=== PATIENT | male | born 2000 | race Caucasian/White ===

== ENCOUNTER 2018-04-10 13:02 | Emergency (ER) | payer OTHER, MEDICAID ==
[2018-04-10] MEDS ORDERED: PROMETHAZINE HCL 25 MG/ML INJ IVP ONE (13:25)
[2018-04-10] MEDS ORDERED: NS 1,000 ML IV ONE ×2 (13:25)
[2018-04-10 13:31] LABS: PLATELET COUNT 302 10^3/uL (150-400)
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
[2018-04-10] MEDS ORDERED: IOHEXOL 300 mgI/ML (OMNIPAQUE) 150 ML BTL IV ONE (14:16)
[2018-04-10 16:00] VITALS: BP 118/65
== END 2018-04-10 16:00 | disposition home or self-care (01) ==
DX: R11.2 Nausea with vomiting, unspecified (principal); R10.33 Periumbilical pain; E86.9 Volume depletion, unspecified; F90.9 Attention-deficit hyperactivity disorder, unspecified type; F41.9 Anxiety disorder, unspecified
CPT/HCPCS: 96374; J2550; Q9967

== ENCOUNTER 2018-07-07 12:52 | Inpatient (IN) | payer OTHER, MEDICAID ==
--- NOTE | 2018-07-07 13:07 | EDPHY ---
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 He describes recent URI symptoms and this morning he woke with bilateral upper and lower extremity paresthesias. He woke approximately 6:00 a.m., back to sleep and Luda woke approximately 8:00 a.m. and symptoms for remained. 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 He denies acute alcohol or drug use. Does note daily marijuana use, last smoked marijuana last evening. 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 SOCIAL HISTORY:Positive for daily marijuana use. Works at [employer] PHYSICAL EXAM (Prior to examination, patient consented to physical exam, hands were washed and my usual and customary physical exam procedures followed) 1) GENERAL: Well-developed, well-nourished, alert and oriented. Appears to be in no acute distress. 2) HEAD: Normocephalic, atraumatic 3) HEENT: Pupils equal, round, reactive to light bilaterally. Sclera anicteric. Symmetrical facies. Negative Jordan's. Nasopharynx, oropharynx, clear, no lesions. Moist Mucous membranes. Ears bilaterally with normal tympanic membranes. 4) NECK: Full range of motion, no meningeal signs. 5) LUNGS: Clear auscultation bilaterally, no wheezes, no rhonchi, no retractions. 6) HEART: Regular rate and rhythm, no murmur, no heave, no gallop. 7) ABDOMEN: No guarding, no rebound, no focal tenderness, negative McBurney's, negative Prasad's, negative Rovsing's, negative peritoneal sign, 8) MUSCULOSKELETAL: Moving all extremities, no focal areas of tenderness, no obvious trauma. No peripheral edema or discoloration. 9) BACK: No CVA tenderness, no midline vertebral tenderness, no fluctuance, no step-off, no obvious trauma, no visual or palpable abnormality. 10) SKIN: No rash, no petechiae. 11) Psychiatric: Patient is oriented X 3, there is no agitation. 12) NEURO: Awake, alert, and oriented to person, place and time. Answers questions appropriately. There were no obvious focal neurologic abnormalities. No cerebellar dysfunction. Cranial nerves 2 through to 12 intact. Normal steady gait. Upper and lower extremities bilaterally with strength 5 / 5, reflexes 2+. Patient notes decreased sensation to sharp on the right lower extremity following the L5 dermatome bilaterally. DIFFERENTIAL DIAGNOSIS: In no particular order including but not limited to Guillain-[place], transverse myelitis, malignancy, (Mercy Brito) Constitutional: Initial Vital Signs Temperature (C) 36.3 C 07/07/18 12:58 Heart Rate 47 L 07/07/18 12:58 Respiratory Rate 16 07/07/18 12:58 Blood Pressure 119/70 07/07/18 12:58 O2 Sat (%) 97 07/07/18 12:58 O2 Delivery Mode Room Air Allergies/Adverse Reactions: No Known Allergies Allergy (Unverified 04/10/18 13:04) Home Medications: Medication Instructions Recorded Aspirin [Aspirin 325 mg (*)] 325 mg PO DAILY PRN 07/07/18 Escitalopram Oxalate [Lexapro] 20 mg PO DAILY 07/07/18 diphenhydrAMINE [Benadryl 25 MG 50 mg PO HS PRN 07/07/18 (*)] Medical Decision Making - Diagnostics Imaging Results: Imaging Impressions Cervical Spine MRI 07/07/18 13:45 Impression: 1. Normal cervical spinal cord without evidence of cord edema, myelomalacia, enhancing lesions, or definite demyelinating plaques. 2. No cervical disk herniations, central canal stenosis or neural foraminal stenosis. 3. No cord compression Findings and recommendations discussed with Emergency Department physicianMercy at 15:06 hour, 07/07/2018. Final report concurs with initial preliminary interpretation. Images reviewed myself (Mercy Brito) ED Course/Re-evaluation: 1:42 p.m.: Phone consultation with on-call neurologist Dr. Lan Pope who recommends MRI of the cervical spine with and without contrast. If this is negative and the patient feels comfortable being discharged he thinks the patient can be discharged with follow up in the office this week (today is Sunday) 3:18 p.m.: Re-evaluation. The patient's mother is at bedside, father on telephone from [place] where he is at the airport [place] route to [place]. Although the MRI C-spine is normal, patient and they are understandably concerned given the patient's history at age 3 when he developed Guillain-[place] , they report a similar presentation, was initially seen and then decompensated over the next 24-48 hours. Given patient's history of gown bar a I think admission to the hospital is appropriate. The patient and family are agreeable with this. 3:21 p.m.: Consultation Dr. Maximo Collins who will admit patient to hospitalist service 3:23 p.m.: Consultation with Dr. Lan Pope who will consult inpatient ( Mercy Brito) Other Provider: PHYSICIAN DOCUMENTATION: The patient was evaluated and managed by the Physician Case Planner and myself. I have reviewed the chart and in addition, I examined the patient myself. History confirmed as pins and needles on the bottom of his feet, he says it feels like when he had Guillain-[place] before. Physical findings as follows: Patellar reflexes 2+, toes downgoing, says his sensation is decreased but no motor deficit noted. Normally conversant without apparent respiratory distress. Father and mother are concerned, discussed with Neurology prior to MRI, admission for neurology consultation and further evaluation. I am the secondary supervising physician. (Ted Aranda) - Data Points Laboratory Results: Laboratory Results 07/07/18 13:15 07/07/18 13:15 07/07/18 07/07/18 07/07/18 13:15 13:15 13:15 WBC 8.96 10^3/uL 10^3/uL (3.80-9.50) RBC 5.72 10^6/uL 10^6/uL (4.40-6.38) Hgb 16.6 g/dL g/dL (13.7-17.5) Hct 48.4 % % (40.0-51.0) MCV 84.6 fL fL (81.5-99.8) MCH 29.0 pg pg (27.9-34.1) MCHC 34.3 g/dL g/dL (32.4-36.7) RDW 12.7 % % (11.5-15.2) Plt Count 313 10^3/uL 10^3/uL (150-400) MPV 9.9 fL fL (8.7-11.7) Neut % (Auto) 54.9 % % (39.3-74.2) Lymph % (Auto) 28.6 % % (15.0-45.0) [place] % (Auto) 10.2 % % (4.5-13.0) Eos % (Auto) 4.6 % % (0.6-7.6) Baso % (Auto) 1.3 % % (0.3-1.7) Nucleat RBC Rel Count 0.0 % % (0.0-0.2) Absolute Neuts (auto) 4.92 10^3/uL 10^3/uL (1.70-6.50) Absolute Lymphs (auto) 2.56 10^3/uL 10^3/uL (1.00-3.00) Absolute Monos (auto) 0.91 10^3/uL H 10^3/uL (0.30-0.80) Absolute Eos (auto) 0.41 10^3/uL H 10^3/uL (0.03-0.40) Absolute Basos (auto) 0.12 10^3/uL H 10^3/uL (0.02-0.10) Absolute Nucleated RBC 0.00 10^3/uL 10^3/uL (0-0.01) Immature Gran % 0.4 % % (0.0-1.1) Immature Gran # 0.04 10^3/uL 10^3/uL (0.00-0.10) Sodium 140 mEq/L mEq/L (135-145) Potassium 4.1 mEq/L mEq/L (3.5-5.2) Chloride 103 mEq/L mEq/L (97-110) Carbon Dioxide 28 mEq/l mEq/l (22-31) Anion Gap 9 mEq/L mEq/L (6-14) BUN 15 mg/dL mg/dL (7-23) Creatinine 0.8 mg/dL mg/dL (0.7-1.3) Estimated GFR > 60 Glucose 67 mg/dL L mg/dL (70-100) Calcium 9.8 mg/dL mg/dL (8.5-10.4) Ethyl Alcohol < 10 mg/dL mg/dL (0-10) Monoscreen NEGATIVE (NEGATIVE) Medications Given: Immune Globulin (Privigen 20 Gm) 20 gm IV DAILY@1500 SENAIT Stop: 07/11/18 15:01 Last Admin: 07/07/18 18:21 Dose: 20 gm Lorazepam (Ativan Injection) 1 mg IVP ONCE PRN PRN Reason: ANXIETY Stop: 01/03/19 16:44 Last Admin: 07/07/18 17:09 Dose: 1 mg Departure - Departure Disposition: [facility] Inpatient Acute Clinical Impression: Paresthesia, History of Guillain-[place] syndrome Condition: Good
[2018-07-07 13:44] LABS: PLATELET COUNT 313 10^3/uL (150-400)
[2018-07-07] MEDS ORDERED: GADOBUTROL 10 ML VIAL IVP ONE (14:28)
[2018-07-07] MEDS ORDERED: IMMUNE GLOBULIN 10 GM/100 ML VIAL IV SCH (15:00)
[2018-07-07] MEDS ORDERED: LORazepam 2 MG/ML INJ IVP PRN (16:45)
[2018-07-07] MEDS ORDERED: LIDOCAINE 1% 300 MG/30 ML SDV ONE (16:55)
--- NOTE | 2018-07-07 16:55 | GCON ---
[f rep st] CONSULTATION Patient is a 18-year-old I am asked to see in neurologic consultation from the emergency room and hos Dr. Mega olea. 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 He had a full recovery. About a week ago, he started having an upper respiratory infection an d never sought out specific medical care and felt somewhat febrile. He started to feel better in the last 48 hours but then early this morning awoke and felt paresthesias in his hands of uncertain caus e. He thought he might have just slept on his hands but they did not improve over the next several h ours. In fact, it started to spread a little bit. He started to feel paresthesias in his face and l ips. He also has similar feelings in his feet. He says when he is walking, his legs just do not fee l right. He is having trouble feeling the floor very well. He feels the right hand is a little weak er than the left. He does not have chest pain, palpitations, or shortness of breath. No change in h is vision, speech, chewing or swallowing. The patient came to the emergency department where we had a cervical spine MRI obtained that was norm al. There is a history of some marijuana use and he works in a restaurant, but otherwise no chronic medical problems or substance abuse. Earlier today when he tried to go to work symptoms were getting worse and that led to him being advis ed to come to the hospital for evaluation. His mother is with him as well. At home he is on some Benadryl as needed, Lexapro 20 mg daily and an aspirin per day or as needed jus t for this recent flu-like symptom. ALLERGIES: No known drug allergies. PHYSICAL EXAM: VITAL SIGNS: Blood pressure 123/59, pulse of 49, respirations 16, temperature 36.7. GENERAL: He is a healthy-appearing young man with a somewhat flushed face. No other evidence of ra sh. NECK: Supple with no bruits or masses. CARDIAC: Regular rate and rhythm with no murmur. Both anterior and posterior lung little are clear. EXTREMITIES: No cyanosis or edema. NEUROLOGIC: He is awake, alert, attentive. Speech is clear and fluent. Pupils are 4 mm and reactive. Extraocular movements intact. Normal facial strength, but there are paresthesias in the face that alter some sen jorge perception. Palate elevates symmetrically. Tongue protrudes midline. Motor exam, normal muscl e bulk and tone, but he has some mild weakness of intrinsic muscles of the right hand more than the l eft, and just a slight degree of distal weakness in the lower extremities. Proximally, the legs are minimally reduced in power. He can ambulate independently and maintain balance. He can walk heel-to -toe, but he says he does not feel right as he walks. Reflexes are about 1+ in the upper extremities , 2+ at the knees, 1+ at the ankles. No pathologic reflexes. LABORATORY: Normal cell count and chemistry. No alcohol in his testing. Millard screen negative. TIME SPENT: Total unit time 70 minutes. IMPRESSION: This young man has a history of Guillain-[place] syndrome and now is presenting after 1 we ek upper respiratory viral type syndrome with symptoms of distal paresthesias also affecting his face , concerning for early Guillain-[place] syndrome with some mild weakness in the right hand and legs. T he cervical spine MRI was negative, excluding any probable spinal cord pathology. The plan is to obt ain lumbar puncture this evening. He will be started on IVIG 400 mg/kg daily for 5 consecutive days. If he were to make a rapid recovery, it is possible that he could be able to leave the hospital to complete outpatient treatment, but more than likely he will stay in this hospital setting to complete the treatment and monitor him closely. If he were to have any deterioration in strength, respiratio ns or other general function, then we will continue to increase the monitoring but will anticipate ch ecking his neurologic exam about every 2 hours and I will get a baseline respiratory therapy evaluati on so that can be tracked as well. All this was discussed with the patient and his mother, as well a s the risks and potential benefits of a lumbar puncture and Interventional Radiology should be able t o do that this evening. /[id number]/MODL
[2018-07-07] MEDS: IMMUNE GLOBULIN 20 GM/200 ML VIAL IV SCH (18:21)
--- NOTE | 2018-07-07 18:45 | GHP ---
[f rep st] HISTORY AND PHYSICAL DATE OF ADMISSION: 07/07/2018 CHIEF COMPLAINT: Numbness of extremities. HISTORY OF PRESENT ILLNESS: Mr. Franz is a pleasant 18-year-old gentleman with a past medical histor y of Guillain-[place] syndrome at the age of 3, who had a recent upper respiratory illness, who present ed to the [facility] Emergency Room after noting numbness and tingling in his feet an d hands. He noted that it felt different as well in his feet when walking. No complaints of low martha k pain. He states he had a recent upper respiratory illness and felt like he did have a fever on Sun day. He did state 1 day of nonbloody diarrhea, but this resolved on its own. These symptoms have la rgely abated. He states the sensation that he has in his feet feels similar to the way he felt when he had Guillain-[place] as a child. In the emergency room he had an MRI of his cervical spine which wa s normal. Neurology was consulted and I reviewed the case with Dr. Lan Pope and the patient is being prepared for a lumbar puncture for further evaluation and is being started on IVIG for treatme nt of Guillain-[place] syndrome. PAST MEDICAL HISTORY: 1. Anxiety/depression. 2. Attention deficit disorder. 3. 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 PAST SURGICAL HISTORY: [place] teeth removal. MEDICATIONS: 1. Lexapro 20 mg daily. 2. The patient states he has also recently been on gabapentin for anxiety as well as Vyvanse for att ention deficit disorder, but has not taken these for at least the past week as he has had difficulty getting followup to obtain refills. ALLERGIES: No known drug allergies. FAMILY HISTORY: Mother and father both living. Father is adopted, so health history is limited. Hi s mother has a history of cervical cancer. SOCIAL HISTORY: The patient is currently single. He grew up in [place], but lives here in [place] w here his mother resides. His parents are /. He currently works at [employer]. He ramachandran s been in school but currently is taking a break and is planning on transferring into the [employer]. REVIEW OF SYSTEMS: CONSTITUTIONAL: Positive for recent fever. ENT: Recent upper respiratory illnes s symptoms which have resolved. CARDIOVASCULAR: No complaints of chest pains, palpitations, or sync opal episodes. RESPIRATORY: No complaints of shortness of breath or productive cough. GI: No foca l abdominal pains, nausea, or vomiting. Positive for 1 episode of diarrhea on Sunday. : No diffi culty with urination or incontinence. NEUROLOGIC: Positive for numbness of the extremities as descr ibed above, possibly also with weakness of his upper extremity. HEMATOLOGIC: No history of any deep vein thrombosis or pulmonary embolism. PSYCHIATRIC: Positive for anxiety and depression history. ENDOCRINE: No history of heat intolerance or polyuria. SKIN: No new skin rashes. MUSCULOSKELETAL: No low back pain. PHYSICAL EXAMINATION: VITAL SIGNS: Temperature 36.7, blood pressure 118/64, heart rate 63, respirat ions 16, satting 97% on room air. GENERAL: The patient appears comfortable. He is awake, alert, con versant, in no acute distress. HEENT: Extraocular movements intact. No scleral icterus. NECK: Niño pple. No adenopathy. No thyroid enlargement. CHEST: Clear to auscultation. Normal respiratory ef fort. HEART: Regular rate and rhythm. No murmurs. ABDOMEN: Soft, nontender, nondistended. Geri l bowel sounds. : No Vasquez catheter in place. EXTREMITIES: No significant edema. NEUROLOGIC: 1 + patellar reflexes bilaterally. I suspect his hand grasp is slightly diminished, possibly more so o n the right as compared to the left. Subjective numbness noted, particularly in the feet bilaterally . LABORATORIES: White blood cell count , hemoglobin 16, platelets 313. Sodium 140, potassiu m 4.1, chloride 103, bicarb 28, BUN 15, creatinine 0.8, glucose of 67, calcium 9.8. Serum alcohol ne gative. Monocyte antibody negative. IMAGING: Cervical spine MRI normal. ASSESSMENT AND PLAN: 1. Guillain [place] syndrome--lumbar puncture has been ordered for further evaluation and patient has been started on IVIG. I have talked with Respiratory Therapy about measuring negative respiratory fo rce every 6 hours, neuro checks every 2 hours. If any significant decline, patient will need to be t ransferred to the intensive care unit but currently appears stable. 2. Anxiety/depression--continue with current Lexapro 20 mg daily. 3. Deep venous thrombosis prophylaxis. Lower risk currently as ambulatory, but monitor closely. 4. Disposition. Patient was living at home independently prior to coming into the hospital. I init kayleny admitted him under observation, but with initiation of IVIG have changed him to inpatient statu s. /[id number]/MODL
[2018-07-07] MEDS: LORazepam 0.5 MG TAB PO PRN (21:26)
[2018-07-07] MEDS: HYDROCODONE/APAP 5/325 TAB PO PRN (21:26)
[2018-07-08] MEDS: ONDANSETRON 4 MG/2 ML VIAL IVP PRN (07:45)
[2018-07-08] MEDS ORDERED: ESCITALOPRAM OXALATE 10 MG TAB PO SCH (09:00)
--- NOTE | 2018-07-08 09:33 | PDMN ---
Medical Necessity Medical necessity: [facility] Neurology: New-onset severe neurologic finding requiring inpatient care. 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
--- NOTE | 2018-07-08 09:39 | ASMTCASEMG ---
Living Arrangements What is your living Answers: With One Parent arrangement? Who do you live with? Type Of Residence What kind of residence do Answers: House you live in? Discharge Plan Comments Coordination Status Comments Notes: Patient is a 18yo single male with a past medical hx of Guillain-[place] syndrome at the age of 3 who had a recent upper respiratory illness and now has symptoms of numbness and tingling in his hands and feet. Patient is being admitted for Guillain-[place] syndrome and is being started on IVIG. PT has been ordered. D/C plan TBD. CM will follow. Date Signed: 07/08/2018 09:37 AM Electronically Signed By:Christa Salinas LCSW
--- NOTE | 2018-07-08 09:59 | NEUROPROG ---
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 Lan Pope. Please see his note on 07/07/18 for full details. Pt had previous Guillian [place] Syndrome at 3 years of age with full recovery 5 months afterwards. 1 week prior to [facility] admission on 07/07/18 pt got a URI. On 07/05/18 he began to feel better but on 07/07/18 he awoke with paresthesias in both hands, his legs, and his face. He also feels slight discoordination of his legs with walking and has problems feeling the floor very well. He also felt his right hand was slightly weak. He had a cervical spine MRI which was unremarkable for acute changes. Dr. 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 Spinal tap was unconcerning. Pt received first dose of IVIG on and will get it until 07/11/17. On 07/08/18 he reported he continues to have paresthesias in his arms, legs and face. His legs also still feel weak. I will get speech eval to ensure safe swallowing and have PT work with pt. He reported having been on gabapentin 600 mg TID in the past and he is currently complaining of neuropathic pain in his back so I will restart this medication ( oral med so will only be given after speech eval, plan discussed with nurse). - PMHx: anxiety/depression, ADD, prior Guillian [place] Syndrome at age 3 yo - SHx: grew up in [place] FHx: cervical cancer - ROS: Pt denied acute fever, total vision loss, active severe chest pain, respiratory failure, total body severe rash, total bowel/bladder incontinence, psychosis, active seizures, or active bleeding - Labs: 07/07/18- CSF clear/colorless, RBC 5, WBC 0, Prot 47, Gluc 57 - Rads: 07/07/18- Cervical MRI wwo: Normal cervical spinal cord without evidence of cord edema, myelomalacia, enhancing lesions, or definite demyelinating plaques. No cervical disk herniations, central canal stenosis or neural foraminal stenosis. 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 Depression/anxiety - Plan: - IVIG day (last dose on 07/11/18) - PT/Speech for any rehab needs - Gabapentin 600 mg TID for neuropathic pain (Pt reported being on this dose in the past without problems) - F/U with Dr. Pope, neuromuscular expert, 1-6 weeks after hospital discharge - 35 min spent with patient, majority of time spent counseling on condition and treatment plan. Objective: Vital Signs Temp Pulse Resp BP Pulse Ox 36.5 C 48 L 16 116/62 95 07/08/18 08:00 07/08/18 08:00 07/08/18 08:00 07/08/18 08:00 07/08/18 08:00 Microbiology 07/07/18 17:34 Gram Stain - Final Cerebral Spinal Fluid 07/07/18 07/08/18 07/09/18 05:59 05:59 05:59 Intake Total 450 Balance 450 Allergies/Adverse Reactions: No Known Allergies Allergy (Unverified 04/10/18 13:04)
[2018-07-08] MEDS ORDERED: LORazepam 2 MG/ML INJ IVP PRN (10:30)
--- NOTE | 2018-07-08 10:34 | HOSPPROG ---
Hospitalist Progress Note Assessment/Plan: 18-year-old with a history of anxiety disorder and ADD is admitted with numbness and possible Guillain-[place] syndrome. Of note he had a previous episode when he was 3 years old and did have a complete recovery from Guillain- [place]. # Guillain-[place] syndrome currently on IVIG. Continues to have numbness that he feels is escalating and pain in his lower extremities that is making him weak. It is a very difficult exam due to his severe anxiety at this time. Some of his symptoms do not seem completely consistent and may be related to his anxiety * Care per Neurology * On IVIG # generalized anxiety disorder with escalation due to his acute medical illness * Resume Lexapro after speech evaluation has been done * Continue Ativan * Consider psychiatric evaluation if his anxiety becomes any worse. # post lumbar puncture headache. Patient is quite uncomfortable at this time. Will monitor and treat symptomatically if persists could consider IR evaluation for blood patch. Subjective: Patient new to me and chart reviewed has multiple complaints including headache, numbness and weakness and pain in his legs. Objective: Vital Signs Temp Pulse Resp BP Pulse Ox 36.5 C 48 L 16 116/62 95 07/08/18 08:00 07/08/18 08:00 07/08/18 08:00 07/08/18 08:00 07/08/18 08:00 Microbiology 07/07/18 17:34 Gram Stain - Final Cerebral Spinal Fluid 07/07/18 07/08/18 07/09/18 05:59 05:59 05:59 Intake Total 450 Balance 450 - Physical Exam Constitutional: appears nourished, not in pain Eyes: PERRL, EOMI Ears, Nose, Mouth, Throat: moist mucous membranes Cardiovascular: regular rate and rhythym Respiratory: no respiratory distress, clear to auscultation Gastrointestinal: soft, non-tender abdomen Genitourinary: no bladder fullness Skin: warm, normal color Musculoskeletal: generalized weakness (Related to effort?) Neurologic: AAOx3 Psychiatric: anxious ICD10 Worksheet Patient Problems: Problems Problem Status Onset Paresthesia Acute History of Guillain-[place] syndrome Acute
[2018-07-08] MEDS: KETOROLAC 15 MG/1 ML SDV IVP PRN (13:31)
[2018-07-08] MEDS: IMMUNE GLOBULIN 20 GM/200 ML VIAL IV SCH (15:14)
[2018-07-08] MEDS: ESCITALOPRAM OXALATE 10 MG TAB PO SCH (15:32)
[2018-07-08] MEDS: GABAPENTIN 300 MG CAP PO SCH ×2 (15:33→22:10)
[2018-07-08] MEDS: TEARS/DEXTRAN 70/HYPROMELLOSE 15 ML OPHT.BTL EACHEYE PRN (16:44)
[2018-07-08] MEDS: IBUPROFEN 200 MG TAB PO PRN (17:13)
[2018-07-08] MEDS: LORazepam 0.5 MG TAB PO PRN ×2 (17:13→23:34)
[2018-07-08] MEDS: IMMUNE GLOBULIN 5 GM/50 ML VIAL IV SCH (18:54)
[2018-07-08] MEDS: HYDROCODONE/APAP 5/325 TAB PO PRN ×2 (19:44→23:34)
--- NOTE | 2018-07-08 20:28 | ECHO ---
[email or web address] [address] [address] Main: [phone] Echocardiography Examination Transthoracic Name: DM PACE MR#: [id number] Study Date: 07/08/2018 Study Time: 03:18 PM Date of : 2000 Age: 18 year(s) Height: 170.2 cm (67 in.) Weight: 61.24 kg (135 lb.) BSA: 1.71 m2 Gender: Male Examination: Echo Contrast: Image Quality: Rhythm: Sinus bradycardia Heart Rate: 50 bpm BP: 118 mmHg/59 mmHg Indication: Abnormal EKG, Cindy Nick Procedure Staff Referring Physician: Line Installer: Ghanshyam Salomon RDCS Reading Physician: Walker Adkins MD Requesting Provider: Ordering Physician: Cristal Candelaria Indication: Abnormal EKG, Cindy Nick Measurements Chambers AV/MV Label Value Normal Value Label Value Normal Value LVOT Vmax 0.89 m/s (0.7m/s - 1.1m/s) AV PGmax 7 mmHg LVDd, 2D 4.4 cm (4.2cm - 5.9cm) AV Vmax 1.34 m/s LVDs, 2D 2.8 cm (2.1cm - 4cm) MV E Vmax 0.58 m/s IVSd, 2D 0.8 cm (0.6cm - 1.1cm) MV A Vmax 0.4 m/s LVPWd, 2D 0.9 cm (0.6cm - 1cm) MV E/A 1.45 LVEF, 2D 66 % (54% - 74%) MV E/E' lateral 3.4 RVDd, 2D 2.7 cm (1.9cm - 3.8cm) MV E/E' septal 5.3 (2.4 - 2.4) Additional Vessels MV E' septal 0.11 m/s Label Value Normal Value MV E' lateral 0.17 m/s AoRoot, MM 3 cm (2.2cm - 3.7cm) MV E/E' mean 4.14 MV E' mean 0.14 m/s TV/PV Label Value Normal Value PV PGmax 3 mmHg PV Vmax, Caliper 0.92 m/s (0.6m/s - 0.9m/s) Conclusions (1) Left ventricular systolic ejection fraction was normal Patient: DM PACE Study Date: 07/08/2018 Page 1 of 2 03:18 PM (2) Normal RV size and function (3) Normal atrial dimensions (4) Grossly normal mitral valve (5) Trileaflet aortic valve without sclerosis or insufficiency (6) Grossly normal tricuspid valve - RVSP was within normal limits (7) Normal ascending aortic dimensions (8) No pericardial effusion Findings Left Ventricle: Left ventricle is normal in size. Normal global systolic left ventricular function. Left ventricle wall thickness is normal. There are no regional wall motion abnormalities. Left ventricular diastolic function parameters are normal. IVS: The septum is intact. Right Ventricle: Normal size right ventricle. Right ventricular systolic function is normal. Left Atrium: The left atrium is normal in size. IAS: Normal appearing atrial septum. Right Atrium: The right atrium is normal in size. Mitral Valve: Mitral valve is normal in appearance. No mitral regurgitation. No mitral valve stenosis. Aortic Valve: Aortic leaflets exhibit normal cuspal separation. No aortic valve regurgitation. There is no aortic stenosis. Tricuspid Valve: Tricuspid valve leaflets are normal in appearance and function. Trivial tricuspid regurgitation. No tricuspid valve stenosis. Pulmonary artery pressure normal. Pulmonic Valve: Pulmonic leaflets exhibit normal cuspal separation. No pulmonic valve regurgitation is evident. There is no pulmonic valve stenosis. Aorta: The aorta is normal. The aortic root size in M-mode measures 3.0 cm. Aorta Measurements AoRoot, MM is 3.0 cm. Pulmonary Artery: The pulmonary artery morphology appears normal. IVC: The inferior vena cava is normal in size and course. Pericardium: No pericardial effusion. No pleural effusion present. Exam Details Procedure Ordered: Echo (No Signature Object) Patient: DM PACE Study Date: 07/08/2018 Page 2 of 2 03:18 PM [id number]
--- NOTE | 2018-07-09 07:13 | CPEKG ---
Test Reason : OPEN Blood Pressure : / mmHG Vent. Rate : 059 BPM Atrial Rate : 063 BPM P-R Int : 130 ms QRS Dur : 086 ms QT Int : 404 ms P-R-T Axes : 055 036 056 degrees QTc Int : 401 ms Sinus rhythm Probable left ventricular hypertrophy ST elev, probable normal early repol pattern Confirmed by Deny Razo ([id number]) on 07/09/2018 7:13:08 AM Referred By: Yomi Collins Confirmed By:Deny Razo
[2018-07-09] MEDS: GABAPENTIN 300 MG CAP PO SCH ×3 (08:02→22:10)
[2018-07-09] MEDS: IBUPROFEN 200 MG TAB PO PRN (08:02)
[2018-07-09] MEDS: ESCITALOPRAM OXALATE 10 MG TAB PO SCH (08:03)
[2018-07-09] MEDS: ONDANSETRON 4 MG/2 ML VIAL IVP PRN (08:56)
[2018-07-09] MEDS: TEARS/DEXTRAN 70/HYPROMELLOSE 15 ML OPHT.BTL EACHEYE PRN (08:57)
[2018-07-09] MEDS: LORazepam 0.5 MG TAB PO PRN ×3 (10:10→22:14)
[2018-07-09] MEDS: HYDROCODONE/APAP 5/325 TAB PO PRN ×3 (10:11→23:14)
--- NOTE | 2018-07-09 10:17 | NEUROPROG ---
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 Lan Pope. Please see his note on 07/07/18 for full details. Pt had previous Guillian [place] Syndrome at 3 years of age with full recovery 5 months afterwards. 1 week prior to [facility] admission on 07/07/18 pt got a URI. On 07/05/18 he began to feel better but on 07/07/18 he awoke with paresthesias in both hands, his legs, and his face. He also feels slight discoordination of his legs with walking and has problems feeling the floor very well. He also felt his right hand was slightly weak. He had a cervical spine MRI which was unremarkable for acute changes. Dr. 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 Spinal tap was unconcerning. Pt received first dose of IVIG on and will get it until 07/11/17. On 07/08/18 he reported he continues to have paresthesias in his arms, legs and face. His legs also still feel weak. I will get speech eval to ensure safe swallowing and have PT work with pt. He reported having been on gabapentin 600 mg TID in the past and he is currently complaining of neuropathic pain in his back so I will restart this medication ( oral med so will only be given after speech eval, plan discussed with nurse). - HPI: F/U 07/09/18. Pt has much less pain and anxiety on gabapentin 600 mg TID. Speech saw pt and cleared for PO intake. Pt on telemetry and had TTE and no concerning findings. He has not yet felt his strength is improved. Reflexes absent in legs. At this time differential is recurrent Guilian [place] Syndrome ( GBS) versus neurologic recrudescence of old GBS from recent GI illness. I will continue with IVIG day 3. - PMHx: anxiety/depression, ADD, prior Guillian [place] Syndrome at age 3 yo - SHx: grew up in [place] FHx: cervical cancer - ROS: Pt denied acute fever, total vision loss, active severe chest pain, respiratory failure, total body severe rash, total bowel/bladder incontinence, psychosis, active seizures, or active bleeding - Labs: 07/07/18- CSF clear/colorless, RBC 5, WBC 0, Prot 47, Gluc 57 - Rads: 07/07/18- Cervical MRI wwo: Normal cervical spinal cord without evidence of cord edema, myelomalacia, enhancing lesions, or definite demyelinating plaques. No cervical disk herniations, central canal stenosis or neural foraminal stenosis. 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 Depression/anxiety - Plan: - IVIG day (last dose on 07/11/18) - PT/Speech for any rehab needs - Continue Gabapentin 600 mg TID for neuropathic pain - F/U with Dr. Pope, neuromuscular expert, 1-6 weeks after hospital discharge - 35 min spent with patient and father, majority of time spent counseling on condition and treatment plan to include prognosis and DDx. Objective: Vital Signs Temp Pulse Resp BP Pulse Ox 36.4 C 62 16 122/73 H 96 07/09/18 07:49 07/09/18 07:49 07/09/18 07:49 07/09/18 07:49 07/09/18 07:49 Microbiology 07/07/18 17:34 Gram Stain - Final Cerebral Spinal Fluid 07/08/18 07/09/18 07/10/18 05:59 05:59 05:59 Intake Total 450 1200 Balance 450 1200 Allergies/Adverse Reactions: No Known Allergies Allergy (Unverified 04/10/18 13:04)
--- NOTE | 2018-07-09 12:38 | HOSPPROG ---
Hospitalist Progress Note Assessment/Plan: 18-year-old with a history of anxiety disorder and ADD is admitted with numbness and possible Guillain-[place] syndrome. Of note he had a previous episode when he was 3 years old and did have a complete recovery from Guillain- [place]. # Guillain-[place] syndrome currently on day 3/5 IVIG. Continues to have numbness and some weakness in his lower extremities. much calmer today. * Care per Neurology * On IVIG # generalized anxiety disorder with escalation due to his acute medical illness * Better back on Lexapro and gabapentin * Continue Ativan as needed only. # post lumbar puncture headache. Improved today and in a much better mood. Still with some back discomfort at LP site. disposition after 5 doses IVIG depending on his functional status Subjective: ramachandran better, Feels his numbness is worse on his lower ext. Upper ext minimally affected Objective: Vital Signs Temp Pulse Resp BP Pulse Ox 36.8 C 58 L 13 125/68 H 98 07/09/18 11:32 07/09/18 11:32 07/09/18 11:32 07/09/18 11:32 07/09/18 11:32 Microbiology 07/07/18 17:34 Gram Stain - Final Cerebral Spinal Fluid 07/08/18 07/09/18 07/10/18 05:59 05:59 05:59 Intake Total 450 1200 Balance 450 1200 - Physical Exam Constitutional: no apparent distress, appears nourished Eyes: PERRL Ears, Nose, Mouth, Throat: moist mucous membranes Cardiovascular: regular rate and rhythym Respiratory: no respiratory distress Neurologic: AAOx3 Psychiatric: interacting appropriately ICD10 Worksheet Patient Problems: Problems Problem Status Onset History of Guillain-[place] syndrome Acute Paresthesia Acute
[2018-07-09] MEDS: ACETAMINOPHEN 325 MG TAB PO SCH (14:34)
[2018-07-09] MEDS: diphenhydrAMINE 25 MG CAP PO SCH (14:34)
[2018-07-09] MEDS: IMMUNE GLOBULIN 20 GM/200 ML VIAL IV SCH (15:26)
[2018-07-09] MEDS: ENOXAPARIN 40 MG/0.4 ML SYR SC SCH (17:44)
[2018-07-09] MEDS: IMMUNE GLOBULIN 5 GM/50 ML VIAL IV SCH (19:17)
[2018-07-09] MEDS: KETOROLAC 15 MG/1 ML SDV IVP PRN (22:14)
[2018-07-10] MEDS: LORazepam 0.5 MG TAB PO PRN ×4 (02:26→22:20)
[2018-07-10] MEDS: HYDROCODONE/APAP 5/325 TAB PO PRN (03:19)
--- NOTE | 2018-07-10 10:20 | NEUROPROG ---
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 Lan Pope. Please see his note on 07/07/18 for full details. Pt had previous Guillain [place] Syndrome at 3 years of age with full recovery 5 months afterwards. 1 week prior to [facility] admission on 07/07/18 pt got a URI. On 07/05/18 he began to feel better but on 07/07/18 he awoke with paresthesias in both hands, his legs, and his face. He also feels slight discoordination of his legs with walking and has problems feeling the floor very well. He also felt his right hand was slightly weak. He had a cervical spine MRI which was unremarkable for acute changes. Dr. 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 Spinal tap was unconcerning. Pt received first dose of IVIG on and will get it until 07/11/17. On 07/08/18 he reported he continues to have paresthesias in his arms, legs and face. His legs also still feel weak. I will get speech eval to ensure safe swallowing and have PT work with pt. He reported having been on gabapentin 600 mg TID in the past and he is currently complaining of neuropathic pain in his back so I will restart this medication ( oral med so will only be given after speech eval, plan discussed with nurse). - F/U 07/09/18. Pt has much less pain and anxiety on gabapentin 600 mg TID. Speech saw pt and cleared for PO intake. Pt on telemetry and had TTE and no concerning findings. He has not yet felt his strength is improved. Reflexes absent in legs. 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 I will continue with IVIG day 3. - HPI: F/U 07/10/18. Pt weaker today with his legs showing decreased tone and absent reflexes. He also continues to have back pain. His symptoms are all most consistent with GBS so this seems to be the correct diagnosis. He is on IVIG day 4 /5 and still worsening so I will discuss case with my colleague, Dr. Pope, neuromuscular expert to consider additional options. I will also increase gabapentin 600 mg TID to 900 mg TID. - PMHx: anxiety/depression, ADD, prior Guillain [place] Syndrome at age 3 yo - SHx: grew up in [place] FHx: cervical cancer - ROS: Pt denied acute fever, total vision loss, active severe chest pain, respiratory failure, total body severe rash, total bowel/bladder incontinence, psychosis, active seizures, or active bleeding - Labs: 07/07/18- CSF clear/colorless, RBC 5, WBC 0, Prot 47, Gluc 57 - Rads: 07/07/18- Cervical MRI wwo: Normal cervical spinal cord without evidence of cord edema, myelomalacia, enhancing lesions, or definite demyelinating plaques. No cervical disk herniations, central canal stenosis or neural foraminal stenosis. No cord compression - Assessment: 1. 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 Depression/anxiety - Plan: - IVIG day 4 /5 (last dose on 07/11/18) - PT/Speech for any rehab needs - Increase Gabapentin 600 mg TID to 900 mg TID for neuropathic pain - 35 min spent with patient and father, majority of time spent counseling on condition and treatment plan to include prognosis and DDx and additional testing. Objective: Vital Signs Temp Pulse Resp BP Pulse Ox 36.6 C 89 12 103/80 95 07/10/18 08:00 07/10/18 08:00 07/10/18 08:00 07/10/18 08:00 07/10/18 08:00 Microbiology 07/07/18 17:34 Gram Stain - Final Cerebral Spinal Fluid 07/09/18 07/10/18 07/11/18 05:59 05:59 05:59 Intake Total 1200 550 Output Total 1400 Balance 1200 -850 Allergies/Adverse Reactions: No Known Allergies Allergy (Unverified 04/10/18 13:04)
[2018-07-10] MEDS: ONDANSETRON 4 MG/2 ML VIAL IVP PRN (10:22)
[2018-07-10] MEDS: ESCITALOPRAM OXALATE 10 MG TAB PO SCH (10:23)
[2018-07-10] MEDS: GABAPENTIN 300 MG CAP PO SCH ×4 (10:24→22:04)
[2018-07-10] MEDS: TEARS/DEXTRAN 70/HYPROMELLOSE 15 ML OPHT.BTL EACHEYE PRN (10:26)
[2018-07-10] MEDS: HYDROCODONE/APAP 10/325 TAB PO PRN ×3 (10:42→22:03)
[2018-07-10] MEDS: ENOXAPARIN 40 MG/0.4 ML SYR SC SCH (10:43)
[2018-07-10] MEDS ORDERED: PROMETHAZINE HCL 25 MG TAB PO PRN (11:31)
[2018-07-10] MEDS: PROMETHAZINE HCL 25 MG/ML INJ IVP PRN ×2 (11:53→23:59)
--- NOTE | 2018-07-10 12:05 | ASMTCMCOM ---
CM Note CM Note Notes: Pts case discussed w/ Dr. Amor. PT is recommending inpatient rehab. Dr. Amor put in a rehab consult. CM spoke to [place] and they will look at the referral. CM to follow. Plan: TBD Date Signed: 07/10/2018 12:04 PM Electronically Signed By:MARII López
--- NOTE | 2018-07-10 15:17 | HOSPPROG ---
Hospitalist Progress Note Assessment/Plan: 18-year-old with a history of anxiety disorder and ADD is admitted with numbness and possible Guillain-[place] syndrome. Of note he had a previous episode when he was 3 years old and did have a complete recovery from Guillain- [place]. # Guillain-[place] syndrome currently on day 4/5 IVIG. Continues to have numbness and weakness in his lower extremities. * Care per Neurology, increasing Gabapentin from 600 mg to 900 mg TID * On IVIG # generalized anxiety disorder with escalation due to his acute medical illness * Better back on Lexapro and gabapentin * Continue Ativan as needed only. # post lumbar puncture headache. Improved. Still with some back discomfort at LP site. disposition after 5 doses IVIG depending on his functional status Subjective: Patient reports nausea this AM, continued numbness and weakness Objective: Vital Signs Temp Pulse Resp BP Pulse Ox 36.7 C 60 16 103/58 L 96 07/10/18 11:43 07/10/18 11:43 07/10/18 11:43 07/10/18 11:43 07/10/18 11:43 Microbiology 07/07/18 17:34 Gram Stain - Final Cerebral Spinal Fluid 07/09/18 07/10/18 07/11/18 05:59 05:59 05:59 Intake Total 1200 550 Output Total 1400 Balance 1200 -850 - Physical Exam Constitutional: uncomfortable Eyes: PERRL Ears, Nose, Mouth, Throat: moist mucous membranes Cardiovascular: regular rate and rhythym Respiratory: no respiratory distress Gastrointestinal: soft, non-tender abdomen Skin: warm Musculoskeletal: generalized weakness Neurologic: AAOx3 Psychiatric: anxious ICD10 Worksheet Patient Problems: Problems Problem Status Onset History of Guillain-[place] syndrome Acute Paresthesia Acute
[2018-07-10] MEDS: diphenhydrAMINE 25 MG CAP PO SCH (15:34)
[2018-07-10] MEDS: ACETAMINOPHEN 325 MG TAB PO SCH (15:35)
[2018-07-10] MEDS: IMMUNE GLOBULIN 20 GM/200 ML VIAL IV SCH (16:01)
[2018-07-10] MEDS: IBUPROFEN 200 MG TAB PO PRN ×2 (17:38→22:03)
[2018-07-10] MEDS: IMMUNE GLOBULIN 5 GM/50 ML VIAL IV SCH (19:20)
[2018-07-11] MEDS: HYDROCODONE/APAP 10/325 TAB PO PRN ×4 (02:12→13:58)
[2018-07-11] MEDS: LORazepam 0.5 MG TAB PO PRN ×3 (02:12→13:57)
[2018-07-11] MEDS ORDERED: POLYETHYLENE GLYCOL 3350 17 GM PKT PO PRN (08:33)
[2018-07-11] MEDS ORDERED: BISACODYL 10 MG SUPP PR PRN (08:33)
[2018-07-11] MEDS ORDERED: MAGNESIUM HYDROXIDE 30 ML UDCUP PO PRN (08:33)
[2018-07-11] MEDS ORDERED: LACTULOSE 20 GM/30 ML UDCUP PO PRN (08:33)
[2018-07-11] MEDS: IBUPROFEN 200 MG TAB PO PRN (09:00)
[2018-07-11] MEDS: ESCITALOPRAM OXALATE 10 MG TAB PO SCH (09:00)
[2018-07-11] MEDS ORDERED: SENNOSIDES/DOCUSATE SODIUM TAB PO SCH (09:00)
[2018-07-11] MEDS: GABAPENTIN 300 MG CAP PO SCH (09:01)
[2018-07-11] MEDS ORDERED: GABAPENTIN 300 MG CAP PO SCH (10:55)
[2018-07-11] MEDS: ONDANSETRON 4 MG/2 ML VIAL IVP PRN (11:17)
--- NOTE | 2018-07-11 11:18 | NEUROPROG ---
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 Lan Pope. Please see his note on 07/07/18 for full details. Pt had previous Guillain [place] Syndrome at 3 years of age with full recovery 5 months afterwards. 1 week prior to [facility] admission on 07/07/18 pt got a URI. On 07/05/18 he began to feel better but on 07/07/18 he awoke with paresthesias in both hands, his legs, and his face. He also feels slight discoordination of his legs with walking and has problems feeling the floor very well. He also felt his right hand was slightly weak. He had a cervical spine MRI which was unremarkable for acute changes. Dr. 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 Spinal tap was unconcerning. Pt received first dose of IVIG on and will get it until 07/11/17. On 07/08/18 he reported he continues to have paresthesias in his arms, legs and face. His legs also still feel weak. I will get speech eval to ensure safe swallowing and have PT work with pt. He reported having been on gabapentin 600 mg TID in the past and he is currently complaining of neuropathic pain in his back so I will restart this medication ( oral med so will only be given after speech eval, plan discussed with nurse). - F/U 07/09/18. Pt has much less pain and anxiety on gabapentin 600 mg TID. Speech saw pt and cleared for PO intake. Pt on telemetry and had TTE and no concerning findings. He has not yet felt his strength is improved. Reflexes absent in legs. 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 I will continue with IVIG day 3/ 5. - F/U 07/10/18. Pt weaker today with his legs showing decreased tone and absent reflexes. He also continues to have back pain. His symptoms are all most consistent with GBS so this seems to be the correct diagnosis. He is on IVIG day 4 /5 and still worsening so I will discuss case with my colleague, Dr. Pope, neuromuscular expert to consider additional options. I will also increase gabapentin 600 mg TID to 900 mg TID. - HPI: F/U 07/11/18. Pt not any better today and he feels possibly slightly weaker. Pt and his father would like to transfer to [facility] for inpatient EMG/NCS (not available at [facility]) to further assess his condition. I spoke to transfer center at [facility] and hospitalist (Dr. Lloyd) accepted admission. We will transfer pt to obtain EMG/NCS. - PMHx: anxiety/depression, ADD, prior Guillain [place] Syndrome at age 3 yo - SHx: grew up in [place] FHx: cervical cancer - ROS: Pt denied acute fever, total vision loss, active severe chest pain, respiratory failure, total body severe rash, total bowel/bladder incontinence, psychosis, active seizures, or active bleeding - Labs: 07/07/18- CSF clear/colorless, RBC 5, WBC 0, Prot 47, Gluc 57 - Rads: 07/07/18- Cervical MRI wwo: Normal cervical spinal cord without evidence of cord edema, myelomalacia, enhancing lesions, or definite demyelinating plaques. No cervical disk herniations, central canal stenosis or neural foraminal stenosis. 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 Depression/anxiety - Plan: - Complete IVIG day (last dose due on 07/11/18) - PT/Speech for any rehab needs - Continue Gabapentin 900 mg TID for neuropathic pain - Transfer to [facility] to obtain inpt EMG/NCS for further evaluation - 35 min spent with patient and father and mother, majority of time spent counseling on condition and treatment plan to include prognosis and DDx and additional testing (EMG/NCS). Objective: Vital Signs Temp Pulse Resp BP Pulse Ox 36.8 C 86 16 141/83 H 94 07/11/18 07:48 07/11/18 07:48 07/11/18 07:48 07/11/18 07:48 07/11/18 07:48 Microbiology 07/07/18 17:34 Gram Stain - Final Cerebral Spinal Fluid 07/10/18 07/11/18 07/12/18 05:59 05:59 05:59 Intake Total 550 650 Output Total 1400 1750 Balance -850 -1100 Allergies/Adverse Reactions: No Known Allergies Allergy (Unverified 04/10/18 13:04)
[2018-07-11] MEDS: TEARS/DEXTRAN 70/HYPROMELLOSE 15 ML OPHT.BTL EACHEYE PRN (12:00)
[2018-07-11 12:20] VITALS: BP 138/79
--- NOTE | 2018-07-11 13:13 | ASMTLACE ---
LACE Length of stay for Answers: 4-6 days current admission Acuity / Level of Answers: Yes Care: Did the patient have an inpatient admission? 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
--- NOTE | 2018-07-11 13:52 | ASMTDCNOTE ---
Case Management Discharge Discharge Order Complete? Answers: Yes Patient to Obtain Answers: Other Notes: [facility] Medications Transportation Arranged Answers: [facility] will Pick (Date 07/11/2018 02:00 PM & Time) EMTALA Complete Answers: Yes Notes: Copy in pts chart Case Management Transport Answers: No Form Complete Faxed Final Orders Answers: Yes Agency/Facility Transfer Answers: Yes Report Printed & Faxed to Receiving Agency Family Notified Answers: Yes Discharge Comments Notes: Pts case discussed w/ Dr. Amor. Pt is being transferred to [facility]. CM coordinated d/c. Soledad, the unit coordinated printed out pts entire chart and had imaging put onto a disc to send w/ pt. Salbador RN call to give report. Pt is going into room 7320 to the neuro floor. EMTCESAI completed and a copy is in pts chart. CM available for changes. Plan: [facility] Date Signed: 07/11/2018 01:51 PM Electronically Signed By:MARII López
[2018-07-11] MEDS: ENOXAPARIN 40 MG/0.4 ML SYR SC SCH (14:10)
--- NOTE | 2018-07-11 15:06 | PDDCSUM ---
Discharge Summary Discharge Summary: Date of Admission: 07/07/2018 Date of Discharge: 07/11/2018 Consults: Neurology Procedures: Followup: Transfer to 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 Of note he had a previous episode when he was 3 years old and did have a complete recovery from Guillain- [place]. 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 Continues to have numbness and weakness in his lower extremities. * Care per Neurology, increasing Gabapentin from 900 mg TID to 1200 mg TID * On IVIG, Day 07/07 today * Discussed with Neurology this morning, plan to transfer to [facility] to obtain inpatient EMG/NCS for further evaluation # generalized anxiety disorder with escalation due to his acute medical illness * Better back on Lexapro and gabapentin * Continue Ativan as needed only. # post lumbar puncture headache. Improved. Still with some back discomfort at LP site. Time spent on discharge was >35 minutes with >50% of time spent on patient education and counseling.
== END 2018-07-11 15:23 | disposition short-term general hospital (02) | DRG 96 ==
LOC: EDUNIT# → OBSVTOIN 15:24 → F3N 16:20
PROVIDERS: ADMIT Internal Medicine; ATTEND Internal Medicine
PROC: 009U3ZX Drainage of Spinal Canal, Percutaneous Approach, Diagnostic (ICD-10-PCS; principal; 2018-07-07)
DX: G61.0 Guillain-Barre syndrome (principal); F41.1 Generalized anxiety disorder; G97.1 Other reaction to spinal and lumbar puncture; F32.9 Major depressive disorder, single episode, unspecified; Z80.49 Family history of malignant neoplasm of other genital organs; F98.8 Other specified behavioral and emotional disorders with onset usually occurring in childhood and adolescence; Z72.0 Tobacco use
CPT/HCPCS: 92526-GN; 92610-GN; 97162-GP; A9585; G0480; J1459; J1650; J1885; J2060; J2405; J2550